=== PATIENT | male | born 1940 | race Caucasian/White ===

== ENCOUNTER → 2017-03-26 | Outpatient (CLI) | payer MEDICARE, OTHER | END | disposition home or self-care (01) | LOC: CFH 08:29 | PROVIDERS: ATTEND Internal Medicine Cardiovascular Disease | DX: I25.5 Ischemic cardiomyopathy (principal) | CPT/HCPCS: 93306 ==

== ENCOUNTER → 2017-12-18 | Outpatient (CLI) | payer MEDICARE, OTHER | END | disposition home or self-care (01) | LOC: CFH 07:05 | PROVIDERS: ATTEND Family Medicine | DX: E04.2 Nontoxic multinodular goiter (principal) | CPT/HCPCS: 76536 ==

== ENCOUNTER → 2018-04-12 | Outpatient (CLI) | payer MEDICARE, OTHER | END | disposition home or self-care (01) | LOC: CFH 07:16 | PROVIDERS: ATTEND Internal Medicine Cardiovascular Disease | DX: I08.0 Rheumatic disorders of both mitral and aortic valves (principal); I25.5 Ischemic cardiomyopathy; I25.2 Old myocardial infarction; I25.10 Atherosclerotic heart disease of native coronary artery without angina pectoris; E11.9 Type 2 diabetes mellitus without complications | CPT/HCPCS: 93306 ==

== ENCOUNTER → 2018-05-24 | Outpatient (CLI) | payer MEDICARE, OTHER ==
[~2018-05-24] MED LIST: GADOBUTROL 10 MMOL/10 ML PFS ONE
== END | disposition home or self-care (01) ==
LOC: CFH 07:17
PROVIDERS: ATTEND Podiatrist
DX: M79.672 Pain in left foot (principal); E11.9 Type 2 diabetes mellitus without complications; I25.10 Atherosclerotic heart disease of native coronary artery without angina pectoris
CPT/HCPCS: 73720; 82565; A9585

== ENCOUNTER → 2018-11-10 | Outpatient (CLI) | payer MEDICARE, OTHER | END | disposition home or self-care (01) | LOC: CVU 08:24 | PROVIDERS: ATTEND Internal Medicine Cardiovascular Disease | DX: I08.0 Rheumatic disorders of both mitral and aortic valves (principal); I27.20 Pulmonary hypertension, unspecified | CPT/HCPCS: 0399T; 93306 ==

== ENCOUNTER 2018-11-17 09:19 | Observation (INO) | payer MEDICARE, OTHER ==
[2018-11-15 09:06] VITALS: BP 110/76
[2018-11-15 09:37] LABS: BASOPHILS % (AUTO) 0 % (0-1); EOSINOPHILS % (AUTO) 1 % (1-7); LYMPHOCYTES # (AUTO) 1.16 x10^3/uL (1-3.4); LYMPHOCYTES % (AUTO) 13 % (22-44); MD NO; MEAN CORPUSCULAR HEMOGLOBIN 25.9 pg (27.5-34.5); MEAN CORPUSCULAR HGB CONC 31.2 g/dL (33.2-36.2); MEAN PLATELET VOLUME 7.2 fL (7.4-10.4); MONOCYTES # (AUTO) 0.59 x10^3/uL (0.2-0.8); MONOCYTES % (AUTO) 7 % (2-9); NEUTROPHILS # (AUTO) 7.32 x10^3/uL (1.8-6.8); NEUTROPHILS % (AUTO) 80 % (42-75); PLATELET COUNT 233 x10^3/uL (130-400); RED BLOOD COUNT 4.93 x10^6/uL (4.38-5.82); RED CELL DISTRIBUTION WIDTH 17.6 % (9.4-14.8)
[2018-11-15 09:46] LABS: ANION GAP 8 mmol/L (5-15); CALCIUM 9.4 mg/dL (8.5-10.1); CHLORIDE 103 mmol/L (98-107)
[~2018-11-17] VITALS: Ht 185.4 cm; Wt 86.9 kg
[~2018-11-17 09:19] MED LIST changes: +ASPI-496 PO; +CARV3.1212 PO; +DAPA1TAB3 PO; +DULA1.5P SC; +FURO20TA3 PO; -GADOBUTROL 10 MMOL/10 ML PFS ONE; +MV-M1TAB16 PO
[2018-11-17] MEDS: SODIUM CHLORIDE 0.9% 1,000 ML IV SCH ×6 (11:00→23:00)
[2018-11-17] MEDS ORDERED: FENTANYL PF 100 MCG/2ML ONE (11:42)
[2018-11-17] MEDS ORDERED: MIDAZOLAM 1 MG/ML, 5ML ONE (11:42)
[2018-11-17] MEDS ORDERED: BIVALIRUDIN 250 MG ONE (11:43)
[2018-11-17] MEDS ORDERED: LIDOCAINE 2%, 20ML ONE (11:43)
[2018-11-17] MEDS ORDERED: HEPARIN 1,000 UNITS/ML, 10ML ONE (11:43)
[2018-11-17] MEDS ORDERED: VERAPAMIL 2.5 MG/ML, 2ML ONE ×2 (11:43→12:53)
[2018-11-17] MEDS ORDERED: NITROGLYCERIN 5 MG/ML, 10ML ONE (12:53)
[2018-11-17] MEDS ORDERED: TICAGRELOR 90 MG TABLET ONE (13:22)
[2018-11-17 13:45] VITALS: BP 99/65
[2018-11-17 19:10] VITALS: BP 94/63
[2018-11-17 20:00] VITALS: BP 93/61
[2018-11-17] MEDS: CARVEDILOL 3.125 MG TABLET PO SCH (20:58)
[2018-11-17] MEDS ORDERED: TICAGRELOR 90 MG TABLET PO SCH ×2 (21:00)
[2018-11-18 02:08] VITALS: BP 100/65
[2018-11-18 04:43] LABS: CHLORIDE 105 mmol/L (98-107)
[2018-11-18 04:48] LABS: CALCIUM 8.5 mg/dL (8.5-10.1); CREATININE 1.64 mg/dL (0.7-1.3)
[2018-11-18 04:50] LABS: ANION GAP 14 mmol/L (5-15)
[2018-11-18] MEDS ORDERED: CLOP75TA PO (07:54)
[2018-11-18 07:58] VITALS: BP 93/61
[2018-11-18] MEDS ORDERED: CLOPIDOGREL 75 MG TABLET ONE (08:36)
[2018-11-18 08:40] VITALS: BP 102/69
[2018-11-18] MEDS: CARVEDILOL 3.125 MG TABLET PO SCH (08:42)
[2018-11-18] MEDS ORDERED: CLOPIDOGREL 75 MG TABLET PO SCH ×2 (09:00)
[2018-11-18] MEDS ORDERED: FUROSEMIDE 20 MG TABLET PO SCH (09:00)
[2018-11-18] MEDS ORDERED: ASPIRIN 81 MG TABLET EC PO SCH (09:00)
[2018-11-18] MEDS ORDERED: TEMPLATE NON-FORMULARY MED. (Aspirin** (Aspir 81**) 81 MG) PO SCH (09:00)
[2018-11-19] MEDS ORDERED: CLOPIDOGREL 75 MG TABLET PO SCH (09:00)
[2018-11-21] MEDS ORDERED: TEMPLATE NON-FORMULARY MED. (Dulaglutide (Trulicity) 0.5 ML) SC SCH (14:00)
== END 2018-11-18 10:50 | disposition home or self-care (01) ==
LOC: CACL 09:19 → 5SO 13:34 → CACL 13:39 → DCLOUNGE 11-18 10:24
PROVIDERS: ADMIT Internal Medicine Cardiovascular Disease; ATTEND Internal Medicine Cardiovascular Disease
DX: I25.10 Atherosclerotic heart disease of native coronary artery without angina pectoris (principal); I11.0 Hypertensive heart disease with heart failure; I50.23 Acute on chronic systolic (congestive) heart failure; I25.2 Old myocardial infarction; E78.2 Mixed hyperlipidemia; E11.9 Type 2 diabetes mellitus without complications; I35.0 Nonrheumatic aortic (valve) stenosis; I25.5 Ischemic cardiomyopathy; E11.65 Type 2 diabetes mellitus with hyperglycemia; N52.9 Male erectile dysfunction, unspecified; I70.213 Atherosclerosis of native arteries of extremities with intermittent claudication, bilateral legs
CPT/HCPCS: 36415; 80048; 85014; 85018; 85025; 93458; 99156; 99157; C1724; C1725; C1769; C1874; C1887; C1894; C9602; G0378; J0583; J1644; J2250; J3010; J3490; Q9967

== ENCOUNTER → 2018-12-02 | Outpatient (CLI) | payer MEDICARE, OTHER ==
[~2018-12-02] MED LIST changes: +CLOP75TA PO; +OMNIPAQUE 350 MG/ML, 150 ML BOTTLE ONE
== END | disposition home or self-care (01) ==
LOC: CVU 11:41
PROVIDERS: ATTEND Internal Medicine Cardiovascular Disease
DX: I50.9 Heart failure, unspecified (principal); J90 Pleural effusion, not elsewhere classified; J81.1 Chronic pulmonary edema; J98.11 Atelectasis; I70.0 Atherosclerosis of aorta; I35.0 Nonrheumatic aortic (valve) stenosis; K42.9 Umbilical hernia without obstruction or gangrene; E11.9 Type 2 diabetes mellitus without complications; I65.23 Occlusion and stenosis of bilateral carotid arteries; Z87.891 Personal history of nicotine dependence
CPT/HCPCS: 71275; 74174; 93880; 94010; 94726; 94729; Q9967

== ENCOUNTER → 2018-12-20 | Outpatient (CLI) | payer MEDICARE, OTHER ==
[~2018-12-20] MED LIST changes: -OMNIPAQUE 350 MG/ML, 150 ML BOTTLE ONE
== END | disposition home or self-care (01) ==
LOC: CFH 07:59
PROVIDERS: ATTEND Internal Medicine
DX: K46.9 Unspecified abdominal hernia without obstruction or gangrene (principal); J90 Pleural effusion, not elsewhere classified; M79.81 Nontraumatic hematoma of soft tissue
CPT/HCPCS: 74176

== ENCOUNTER 2018-12-21 15:26 | Inpatient (IN) | payer MEDICARE, OTHER ==
[~2018-12-21] VITALS: Ht 185.4 cm; Wt 88.6 kg
[2018-12-21] MEDS ORDERED: SODIUM CHLORIDE FLUSH 10ML SYR IVF ONE (16:00)
[2018-12-21 16:18] LABS: BASOPHILS # (AUTO) 0.06 x10^3/uL (0-0.1); BASOPHILS % (AUTO) 1 % (0-1); EOSINOPHILS # (AUTO) 0.03 x10^3/uL (0-0.4); EOSINOPHILS % (AUTO) 0 % (1-7); LYMPHOCYTES # (AUTO) 0.69 x10^3/uL (1-3.4); LYMPHOCYTES % (AUTO) 6 % (22-44); MD NO; MEAN CORPUSCULAR HEMOGLOBIN 25.1 pg (27.5-34.5); MEAN CORPUSCULAR HGB CONC 31.9 g/dL (33.2-36.2); MEAN CORPUSCULAR VOLUME 78.5 fL (81-97); MEAN PLATELET VOLUME 7.8 fL (7.4-10.4); MONOCYTES % (AUTO) 6 % (2-9); NEUTROPHILS # (AUTO) 11.05 x10^3/uL (1.8-6.8); NEUTROPHILS % (AUTO) 88 % (42-75); PLATELET COUNT 250 x10^3/uL (130-400)
[2018-12-21 16:28] LABS: INTERNATIONAL NORMALIZED RATIO 1.26 (0.93-1.1); PROTHROMBIN TIME 13.1 Seconds (9.6-11.5)
[2018-12-21 16:30] LABS: ALANINE AMINOTRANSFERASE 68 U/L (12-78); ALBUMIN 3.3 g/dL (3.4-5.0); ANION GAP 12 mmol/L (5-15); CALCIUM 8.5 mg/dL (8.5-10.1); CHLORIDE 98 mmol/L (98-107); CREATININE 1.83 mg/dL (0.7-1.3)
[2018-12-21 16:35] LABS: ALKALINE PHOSPHATASE 177 U/L (45-117); BILIRUBIN,TOTAL 1.9 mg/dL (0.2-1.0); CREATINE KINASE, TOTAL 178 U/L (39-308); TOTAL PROTEIN 6.5 g/dL (6.4-8.2)
[2018-12-21 16:39] LABS: TROPONIN I 0.359 ng/mL (0.000-0.045)
[2018-12-21] MEDS ORDERED: FUROSEMIDE 40 MG/4 ML IV ONE (17:00)
[2018-12-21] MEDS ORDERED: FUROSEMIDE 40 MG/4 ML ONE (17:55)
--- NOTE | 2018-12-21 18:09 | NUR ---
PT MED WITH RONNYIX NOTED. CALL LIGHT W/I REACH, COMMODE AT BEDSIDE. PT VERBALIZES UNDERSTANDING TO CALL FOR RN IF HE NEEDS TO USE THE COMMODE.
--- NOTE | 2018-12-21 18:36 | NUR ---
PT OOB TO COMMODE, VOIDED W/O DIFFICULTY AND RTD TO BED. MONITORS IN PLACE, CALL LIGHT W/I REACH
[2018-12-21 18:55] LABS: MICROSCOPIC AUTO
[2018-12-21 18:59] LABS: CULTURE INDICATED? YES
--- NOTE | 2018-12-21 19:07 | NUR ---
BEDSIDE REPORT FROM RONALD VAZQUEZ. THIS RN TO ASSUME CARE OF PT. LIGHTS TURNED DOWN AND GIVEN WARM BLANKET FOR COMFORT. NO OTHER IMMEDIATE NEEDS. CALL LIGHT WITHIN REACH.
--- NOTE | 2018-12-21 19:18 | NUR ---
[facility] RPT TO TAYLOR VELAZQUEZ
[2018-12-21] MEDS ORDERED: ACETAMINOPHEN 325 MG TABLET PO PRN (20:00)
[2018-12-21] MEDS ORDERED: DOCUSATE 100 MG CAPSULE PO PRN (20:00)
[2018-12-21 21:00] VITALS: BP 92/62
[2018-12-21] MEDS: ATORVASTATIN 40 MG TABLET PO SCH (22:18)
[2018-12-21] MEDS: HEPARIN 5,000 UNITS/ML, 1ML SQ SCH (22:18)
[2018-12-21] MEDS: SODIUM CHLORIDE FLUSH 10ML SYR IVF SCH (22:41)
[2018-12-21] MEDS: INSULIN LISPRO 100 UNITS/ML, PEN SQ-INSULIN SCH (22:42)
[2018-12-21] MEDS ORDERED: DEXTROSE 4 GM TAB.CHEW PO PRN (23:00)
[2018-12-21] MEDS ORDERED: GLUCAGON 1 MG IM PRN (23:00)
[2018-12-21] MEDS ORDERED: DEXTROSE 50%, 50ML SYRINGE IVPush PRN (23:00)
[2018-12-21 23:49] LABS: TROPONIN I 0.336 ng/mL (0.000-0.045)
[2018-12-22] VITALS (9 sets, daily range): BP systolic 84–102; BP diastolic 47–66
[2018-12-22 04:30] LABS: BASOPHILS # (AUTO) 0.05 x10^3/uL (0-0.1); BASOPHILS % (AUTO) 1 % (0-1); EOSINOPHILS # (AUTO) 0.23 x10^3/uL (0-0.4); EOSINOPHILS % (AUTO) 2 % (1-7); LYMPHOCYTES # (AUTO) 1.17 x10^3/uL (1-3.4); LYMPHOCYTES % (AUTO) 12 % (22-44); MD NO; MEAN CORPUSCULAR HEMOGLOBIN 25.2 pg (27.5-34.5); MEAN CORPUSCULAR HGB CONC 32.2 g/dL (33.2-36.2); MEAN CORPUSCULAR VOLUME 78.3 fL (81-97); MEAN PLATELET VOLUME 7.4 fL (7.4-10.4); MONOCYTES # (AUTO) 0.81 x10^3/uL (0.2-0.8); MONOCYTES % (AUTO) 9 % (2-9); NEUTROPHILS # (AUTO) 7.25 x10^3/uL (1.8-6.8); NEUTROPHILS % (AUTO) 76 % (42-75); PLATELET COUNT 194 x10^3/uL (130-400); RED BLOOD COUNT 4.33 x10^6/uL (4.38-5.82); RED CELL DISTRIBUTION WIDTH 19.7 % (9.4-14.8)
[2018-12-22 04:41] LABS: ANION GAP 8 mmol/L (5-15); CALCIUM 8.3 mg/dL (8.5-10.1); CHLORIDE 101 mmol/L (98-107); CREATININE 1.46 mg/dL (0.7-1.3)
[2018-12-22 04:45] LABS: TROPONIN I 0.409 ng/mL (0.000-0.045)
[2018-12-22] MEDS: HEPARIN 5,000 UNITS/ML, 1ML SQ SCH ×3 (06:01→21:46)
[2018-12-22] MEDS: ASPIRIN 81 MG TABLET EC PO SCH (06:01)
[2018-12-22] MEDS: INSULIN LISPRO 100 UNITS/ML, PEN SQ-INSULIN SCH ×4 (07:00→20:27)
[2018-12-22] MEDS ORDERED: FUROSEMIDE 40 MG/4 ML IV SCH (07:30)
[2018-12-22] MEDS: SODIUM CHLORIDE FLUSH 10ML SYR IVF SCH ×2 (08:13→20:21)
[2018-12-22] MEDS: CLOPIDOGREL 75 MG TABLET PO SCH (08:15)
[2018-12-22] MEDS ORDERED: TEMPLATE NON-FORMULARY MED. (Aspirin** (Aspir 81**) 81 MG) PO SCH (09:00)
[2018-12-22] MEDS ORDERED: CARVEDILOL 3.125 MG TABLET PO SCH (09:00)
[2018-12-22] MEDS ORDERED: ISOSORBIDE DINITRATE 10 MG TABLET PO SCH (09:00)
[2018-12-22] MEDS ORDERED: TEMPLATE NON-FORMULARY MED. (Clopidogrel Bisulfate** (Clopidogrel**) 75 MG) PO SCH (09:00)
[2018-12-22] MEDS: FUROSEMIDE 20 MG TABLET PO SCH (09:00)
[2018-12-22] MEDS ORDERED: ACETAMINOPHEN 325 MG TABLET PO PRN (09:00)
[2018-12-22] MEDS ORDERED: POTASSIUM CHLORIDE 20 MEQ TAB.ER.PRT PO ONE (09:00)
[2018-12-22] MEDS: CARVEDILOL 3.125 MG TABLET PO SCH ×2 (10:38→21:40)
[2018-12-22 11:55] LABS: TROPONIN I 0.443 ng/mL (0.000-0.045)
[2018-12-22] MEDS: ISOSORBIDE DINITRATE 10 MG TABLET PO SCH ×2 (15:36→20:22)
[2018-12-22] MEDS: ATORVASTATIN 40 MG TABLET PO SCH (20:22)
[2018-12-23 01:35] VITALS: BP 97/55
[2018-12-23 05:07] LABS: ANION GAP 7 mmol/L (5-15); CALCIUM 8.2 mg/dL (8.5-10.1); CHLORIDE 104 mmol/L (98-107); HEMOGLOBIN A1C 9.8 % (4.2-6.3)
[2018-12-23 05:10] LABS: BASOPHILS # (AUTO) 0.02 x10^3/uL (0-0.1); BASOPHILS % (AUTO) 0 % (0-1); EOSINOPHILS # (AUTO) 0.13 x10^3/uL (0-0.4); EOSINOPHILS % (AUTO) 2 % (1-7); LYMPHOCYTES # (AUTO) 1.04 x10^3/uL (1-3.4); LYMPHOCYTES % (AUTO) 14 % (22-44); MD NO; MEAN CORPUSCULAR HEMOGLOBIN 24.6 pg (27.5-34.5); MEAN CORPUSCULAR HGB CONC 31.3 g/dL (33.2-36.2); MEAN CORPUSCULAR VOLUME 78.4 fL (81-97); MEAN PLATELET VOLUME 7.5 fL (7.4-10.4); MONOCYTES # (AUTO) 0.53 x10^3/uL (0.2-0.8); MONOCYTES % (AUTO) 7 % (2-9); NEUTROPHILS % (AUTO) 77 % (42-75); PLATELET COUNT 171 x10^3/uL (130-400); RED BLOOD COUNT 4.25 x10^6/uL (4.38-5.82); RED CELL DISTRIBUTION WIDTH 19.5 % (9.4-14.8)
[2018-12-23 05:13] LABS: CREATININE 1.49 mg/dL (0.7-1.3)
[2018-12-23 05:35] VITALS: BP 75/35
[2018-12-23] MEDS: CARVEDILOL 3.125 MG TABLET PO SCH ×2 (05:36→17:56)
[2018-12-23] MEDS: HEPARIN 5,000 UNITS/ML, 1ML SQ SCH ×3 (05:37→20:45)
[2018-12-23] MEDS: ASPIRIN 81 MG TABLET EC PO SCH (05:37)
[2018-12-23 08:40] VITALS: BP 100/56
[2018-12-23] MEDS: FUROSEMIDE 20 MG TABLET PO SCH (09:02)
[2018-12-23] MEDS: ISOSORBIDE DINITRATE 10 MG TABLET PO SCH (09:02)
[2018-12-23] MEDS: CLOPIDOGREL 75 MG TABLET PO SCH (09:03)
[2018-12-23] MEDS: INSULIN LISPRO 100 UNITS/ML, PEN SQ-INSULIN SCH ×4 (09:04→21:02)
[2018-12-23 09:05] VITALS: BP 87/49
[2018-12-23] MEDS: SODIUM CHLORIDE FLUSH 10ML SYR IVF SCH ×2 (09:08→20:45)
[2018-12-23 13:48] VITALS: BP 116/68
[2018-12-23 19:06] VITALS: BP 90/56
[2018-12-23] MEDS: ATORVASTATIN 40 MG TABLET PO SCH (20:45)
[2018-12-24 01:06] VITALS: BP 95/60
[2018-12-24 06:35] VITALS: BP 93/61
[2018-12-24] MEDS: HEPARIN 5,000 UNITS/ML, 1ML SQ SCH ×3 (06:36→20:04)
[2018-12-24] MEDS: ASPIRIN 81 MG TABLET EC PO SCH (06:36)
[2018-12-24 07:00] VITALS: BP 96/60
[2018-12-24] MEDS: CARVEDILOL 3.125 MG TABLET PO SCH (08:25)
[2018-12-24] MEDS: INSULIN LISPRO 100 UNITS/ML, PEN SQ-INSULIN SCH ×4 (08:25→20:15)
[2018-12-24] MEDS: SODIUM CHLORIDE FLUSH 10ML SYR IVF SCH ×2 (08:25→20:03)
[2018-12-24] MEDS: FUROSEMIDE 20 MG TABLET PO SCH (08:25)
[2018-12-24] MEDS: CLOPIDOGREL 75 MG TABLET PO SCH (08:25)
[2018-12-24 13:40] VITALS: BP 91/64
[2018-12-24] MEDS: CARVEDILOL 6.25 MG TABLET PO SCH (20:04)
[2018-12-24] MEDS: ATORVASTATIN 40 MG TABLET PO SCH (20:04)
[2018-12-24 20:34] VITALS: BP 104/62
[2018-12-24] MEDS ORDERED: INSULIN GLARGINE 100 UNITS/ML, PEN SQ-INSULIN SCH (21:00)
[2018-12-25 01:25] VITALS: BP 108/57
[2018-12-25 05:23] LABS: ANION GAP 8 mmol/L (5-15); CALCIUM 8.2 mg/dL (8.5-10.1); CHLORIDE 104 mmol/L (98-107)
[2018-12-25] MEDS: ASPIRIN 81 MG TABLET EC PO SCH (06:56)
[2018-12-25] MEDS: HEPARIN 5,000 UNITS/ML, 1ML SQ SCH ×3 (06:56→21:32)
[2018-12-25] MEDS: CARVEDILOL 6.25 MG TABLET PO SCH (06:56)
[2018-12-25] MEDS: INSULIN LISPRO 100 UNITS/ML, PEN SQ-INSULIN SCH ×4 (07:00→21:41)
[2018-12-25 08:20] VITALS: BP 84/56
[2018-12-25] MEDS: FUROSEMIDE 20 MG TABLET PO SCH (08:52)
[2018-12-25] MEDS: CLOPIDOGREL 75 MG TABLET PO SCH (08:52)
[2018-12-25] MEDS: SODIUM CHLORIDE FLUSH 10ML SYR IVF SCH ×2 (08:52→21:33)
[2018-12-25 13:30] VITALS: BP 98/58
[2018-12-25] MEDS: CARVEDILOL 3.125 MG TABLET PO SCH (17:51)
[2018-12-25 20:35] VITALS: BP 92/54
[2018-12-25] MEDS ORDERED: INSULIN GLARGINE 100 UNITS/ML, PEN SQ-INSULIN SCH (21:00)
[2018-12-25] MEDS: ATORVASTATIN 40 MG TABLET PO SCH (21:32)
[2018-12-26 05:00] VITALS: BP 96/53
[2018-12-26] MEDS: CARVEDILOL 3.125 MG TABLET PO SCH ×2 (05:24→18:00)
[2018-12-26] MEDS: ASPIRIN 81 MG TABLET EC PO SCH (05:24)
[2018-12-26] MEDS: INSULIN LISPRO 100 UNITS/ML, PEN SQ-INSULIN SCH ×5 (07:00→21:45)
[2018-12-26 07:04] VITALS: BP 87/52
[2018-12-26] MEDS: CLOPIDOGREL 75 MG TABLET PO SCH (08:08)
[2018-12-26] MEDS: HEPARIN 5,000 UNITS/ML, 1ML SQ SCH ×3 (08:08→21:46)
[2018-12-26] MEDS: SODIUM CHLORIDE FLUSH 10ML SYR IVF SCH ×2 (08:09→21:44)
[2018-12-26 14:27] VITALS: BP 90/58
[2018-12-26 14:38] VITALS: BP 98/60
[2018-12-26] MEDS: FUROSEMIDE 20 MG TABLET PO SCH (14:45)
[2018-12-26] MEDS: INSULIN GLARGINE 100 UNITS/ML, PEN SQ-INSULIN SCH ×2 (17:30→21:46)
[2018-12-26 18:35] VITALS: BP_SYST 81; BP_SYST 87; BP_DIAS 58
[2018-12-26 20:33] VITALS: BP 100/65
[2018-12-26] MEDS: ATORVASTATIN 40 MG TABLET PO SCH (21:44)
[2018-12-27 02:28] VITALS: BP 90/59
[2018-12-27] MEDS: ASPIRIN 81 MG TABLET EC PO SCH (05:32)
[2018-12-27] MEDS: CARVEDILOL 3.125 MG TABLET PO SCH ×2 (05:32→18:46)
[2018-12-27] MEDS: HEPARIN 5,000 UNITS/ML, 1ML SQ SCH ×3 (05:32→20:44)
[2018-12-27 05:36] VITALS: BP 94/60
[2018-12-27 05:59] LABS: CHLORIDE 104 mmol/L (98-107)
[2018-12-27 06:04] LABS: ANION GAP 8 mmol/L (5-15); CALCIUM 8.3 mg/dL (8.5-10.1); CREATININE 1.27 mg/dL (0.7-1.3)
[2018-12-27] MEDS: INSULIN LISPRO 100 UNITS/ML, PEN SQ-INSULIN SCH ×4 (07:00→20:59)
[2018-12-27 07:12] VITALS: BP 89/56
[2018-12-27] MEDS ORDERED: POTASSIUM PHOSPHATE 44 MEQ in SODIUM CHLORIDE 0.9% 500 ML IV ONE (10:00)
[2018-12-27] MEDS: CLOPIDOGREL 75 MG TABLET PO SCH (10:11)
[2018-12-27] MEDS: FUROSEMIDE 20 MG TABLET PO SCH (10:11)
[2018-12-27] MEDS: SODIUM CHLORIDE FLUSH 10ML SYR IVF SCH ×2 (10:11→20:59)
[2018-12-27] MEDS: INSULIN GLARGINE 100 UNITS/ML, PEN SQ-INSULIN SCH ×2 (11:47→20:59)
[2018-12-27 13:36] VITALS: BP 87/57
[2018-12-27] MEDS: POTASSIUM CHLORIDE 20 MEQ TAB.ER.PRT PO SCH (16:29)
[2018-12-27 19:39] VITALS: BP 95/63
[2018-12-27] MEDS: ATORVASTATIN 40 MG TABLET PO SCH (20:58)
[2018-12-28] MEDS ORDERED: ONDANSETRON 2MG/ML, 2ML IVPush PRN ×3 (01:00→20:30)
[2018-12-28] MEDS ORDERED: SODIUM CHLORIDE 0.9% 1,000 ML IV ONE (01:00)
[2018-12-28] MEDS ORDERED: CHLORHEXIDINE 15 ML UDC MM PRN (01:00)
[2018-12-28 01:32] VITALS: BP 92/60
[2018-12-28 01:45] LABS: BASOPHILS # (AUTO) 0.03 x10^3/uL (0-0.1); BASOPHILS % (AUTO) 0 % (0-1); EOSINOPHILS # (AUTO) 0.17 x10^3/uL (0-0.4); EOSINOPHILS % (AUTO) 2 % (1-7); LYMPHOCYTES # (AUTO) 1.47 x10^3/uL (1-3.4); LYMPHOCYTES % (AUTO) 19 % (22-44); MD NO; MEAN CORPUSCULAR HEMOGLOBIN 24.8 pg (27.5-34.5); MEAN CORPUSCULAR HGB CONC 31.6 g/dL (33.2-36.2); MEAN CORPUSCULAR VOLUME 78.4 fL (81-97); MEAN PLATELET VOLUME 7.5 fL (7.4-10.4); MONOCYTES # (AUTO) 0.85 x10^3/uL (0.2-0.8); MONOCYTES % (AUTO) 11 % (2-9); NEUTROPHILS # (AUTO) 5.17 x10^3/uL (1.8-6.8); NEUTROPHILS % (AUTO) 67 % (42-75); PLATELET COUNT 188 x10^3/uL (130-400); RED BLOOD COUNT 4.37 x10^6/uL (4.38-5.82); RED CELL DISTRIBUTION WIDTH 20.1 % (9.4-14.8)
[2018-12-28 01:55] LABS: INTERNATIONAL NORMALIZED RATIO 1.24 (0.93-1.1); PROTHROMBIN TIME 12.9 Seconds (9.6-11.5)
[2018-12-28 01:57] LABS: ALANINE AMINOTRANSFERASE 35 U/L (12-78); ALBUMIN 2.6 g/dL (3.4-5.0); ANION GAP 5 mmol/L (5-15); CALCIUM 8.3 mg/dL (8.5-10.1); CHLORIDE 106 mmol/L (98-107); CREATININE 1.42 mg/dL (0.7-1.3)
[2018-12-28 01:59] LABS: ALKALINE PHOSPHATASE 154 U/L (45-117); BILIRUBIN,TOTAL 1.2 mg/dL (0.2-1.0); TOTAL PROTEIN 5.8 g/dL (6.4-8.2)
[2018-12-28] MEDS: HEPARIN 5,000 UNITS/ML, 1ML SQ SCH ×3 (05:43→23:13)
[2018-12-28 06:14] VITALS: BP 96/63
[2018-12-28] MEDS: CARVEDILOL 3.125 MG TABLET PO SCH ×2 (06:14→17:36)
[2018-12-28] MEDS: INSULIN LISPRO 100 UNITS/ML, PEN SQ-INSULIN SCH ×5 (07:00→23:00)
[2018-12-28 07:43] VITALS: BP 97/62
[2018-12-28] MEDS: POTASSIUM CHLORIDE 20 MEQ TAB.ER.PRT PO SCH (08:42)
[2018-12-28] MEDS: FUROSEMIDE 20 MG TABLET PO SCH (08:43)
[2018-12-28] MEDS: CLOPIDOGREL 75 MG TABLET PO SCH (08:43)
[2018-12-28] MEDS: ASPIRIN 81 MG TABLET EC PO SCH (08:43)
[2018-12-28] MEDS: INSULIN GLARGINE 100 UNITS/ML, PEN SQ-INSULIN SCH (08:47)
[2018-12-28] MEDS: SODIUM CHLORIDE FLUSH 10ML SYR IVF SCH ×2 (08:47→20:04)
[2018-12-28] MEDS ORDERED: FENTANYL PF 250 MCG/5ML ONE ×2 (10:50→12:58)
[2018-12-28] MEDS ORDERED: SUCCINYLCHOLINE 20 MG/ML, 10ML ONE (11:29)
[2018-12-28] MEDS ORDERED: CEFAZOLIN 1,000 MG ONE (11:29)
[2018-12-28] MEDS ORDERED: PROPOFOL 10 MG/ML, 20ML ONE (11:29)
[2018-12-28] MEDS ORDERED: ROCURONIUM 10 MG/ML,10ML ONE (11:29)
[2018-12-28] MEDS ORDERED: DEXMEDETOMIDINE 1,000 MCG in SODIUM CHLORIDE 0.9% 240 ML IV PRN (13:30)
[2018-12-28] MEDS ORDERED: VASOPRESSIN 100 UNIT in SODIUM CHLORIDE 0.9% 495 ML IV PRN (13:39)
[2018-12-28] MEDS ORDERED: EPINEPHRINE 1 MG in SODIUM CHLORIDE 0.9% 249 ML IV PRN (13:39)
[2018-12-28] MEDS ORDERED: MIDAZOLAM 1 MG/ML, 2ML ONE (13:44)
[2018-12-28] MEDS: FENTANYL PF 100 MCG/2ML IVPush PRN ×3 (13:58→20:04)
[2018-12-28] MEDS ORDERED: MIDAZOLAM 1 MG/ML, 2ML IVPush PRN (14:00)
[2018-12-28] MEDS ORDERED: LIDOCAINE-MPF 1%, 2ML ENDO PRN (14:00)
[2018-12-28] MEDS ORDERED: ALBUTEROL/IPRATROPIUM 2.5MG/0.5MG, 3 ML INLINE SCH (14:00)
[2018-12-28] MEDS ORDERED: PHARMACY MAY ADJ FOR RENAL FX MC SCH (14:00)
[2018-12-28] MEDS: FAMOTIDINE 20 MG/2 ML IV SCH (15:38)
[2018-12-28] MEDS ORDERED: FUROSEMIDE 40 MG/4 ML IV SCH ×2 (17:00)
[2018-12-28] MEDS ORDERED: DOBUTAMINE/D5W PMX 250 ML ONE (17:26)
[2018-12-28] MEDS ORDERED: NOREPINEPHRINE 1 MG/ML, 4ML ONE (18:13)
[2018-12-28] MEDS ORDERED: hydrALAzine 20 MG/ML, 1ML IVPush PRN (20:30)
[2018-12-28] MEDS ORDERED: LABETALOL 5 MG/ML SYRINGE IVPush PRN (20:30)
[2018-12-28] MEDS: ATORVASTATIN 40 MG TABLET PO SCH (21:00)
[2018-12-28] MEDS: DOBUTAMINE 250 MG in SODIUM CHLORIDE 0.9% 230 ML IV PRN (21:19)
[2018-12-28] MEDS ORDERED: SODIUM BICARBONATE 1 MEQ/ML, 50ML VIAL ONE (22:11)
[2018-12-28] MEDS ORDERED: SODIUM BICARBONATE 1 MEQ/ML, 50ML VIAL IVPush ONE (22:30)
[2018-12-28 22:37] LABS: ALANINE AMINOTRANSFERASE 37 U/L (12-78); ANION GAP 8 mmol/L (5-15); CALCIUM 7.3 mg/dL (8.5-10.1); CHLORIDE 111 mmol/L (98-107)
[2018-12-28 22:40] LABS: ALKALINE PHOSPHATASE 139 U/L (45-117); BILIRUBIN,TOTAL 1.6 mg/dL (0.2-1.0); CREATININE 1.17 mg/dL (0.7-1.3); TOTAL PROTEIN 4.5 g/dL (6.4-8.2)
[2018-12-28 22:44] LABS: BASOPHILS % (AUTO) 0 % (0-1); EOSINOPHILS # (AUTO) 0.01 x10^3/uL (0-0.4); EOSINOPHILS % (AUTO) 0 % (1-7); LYMPHOCYTES # (AUTO) 0.21 x10^3/uL (1-3.4); LYMPHOCYTES % (AUTO) 2 % (22-44); MD NO; MEAN CORPUSCULAR HEMOGLOBIN 24.7 pg (27.5-34.5); MEAN CORPUSCULAR VOLUME 77.4 fL (81-97); MEAN PLATELET VOLUME 7.4 fL (7.4-10.4); MONOCYTES # (AUTO) 0.67 x10^3/uL (0.2-0.8); MONOCYTES % (AUTO) 5 % (2-9); NEUTROPHILS # (AUTO) 12.05 x10^3/uL (1.8-6.8); NEUTROPHILS % (AUTO) 93 % (42-75); PLATELET COUNT 163 x10^3/uL (130-400); RED BLOOD COUNT 3.38 x10^6/uL (4.38-5.82); RED CELL DISTRIBUTION WIDTH 19.8 % (9.4-14.8)
[2018-12-28] MEDS ORDERED: EPINEPHRINE 4 MG in SODIUM CHLORIDE 0.9% 249 ML IV PRN (23:00)
[2018-12-28] MEDS: EPINEPHRINE 4 MG in SODIUM CHLORIDE 0.9% 246 ML IV PRN (23:09)
[2018-12-29] MEDS: NOREPINEPHRINE 4 MG in SODIUM CHLORIDE 0.9% 246 ML IV PRN ×6 (00:23→18:06)
[2018-12-29] MEDS: FENTANYL PF 100 MCG/2ML IVPush PRN ×4 (00:23→20:50)
[2018-12-29] MEDS: FAMOTIDINE 20 MG/2 ML IV SCH ×2 (02:10→14:49)
[2018-12-29] MEDS: CARVEDILOL 3.125 MG TABLET PO SCH ×2 (05:32→17:41)
[2018-12-29] MEDS: ASPIRIN 81 MG TABLET EC PO SCH (05:32)
[2018-12-29] MEDS: HEPARIN 5,000 UNITS/ML, 1ML SQ SCH ×3 (05:32→21:45)
[2018-12-29 05:51] LABS: CALCIUM 7.1 mg/dL (8.5-10.1); CHLORIDE 110 mmol/L (98-107)
[2018-12-29 05:54] LABS: MEAN CORPUSCULAR HEMOGLOBIN 24.5 pg (27.5-34.5); MEAN CORPUSCULAR HGB CONC 31.3 g/dL (33.2-36.2); MEAN PLATELET VOLUME 7.8 fL (7.4-10.4); PLATELET COUNT 163 x10^3/uL (130-400); RED BLOOD COUNT 3.25 x10^6/uL (4.38-5.82); RED CELL DISTRIBUTION WIDTH 19.8 % (9.4-14.8)
[2018-12-29 05:57] LABS: ALANINE AMINOTRANSFERASE 35 U/L (12-78); ALBUMIN 1.9 g/dL (3.4-5.0); ALKALINE PHOSPHATASE 131 U/L (45-117); ANION GAP 11 mmol/L (5-15); BILIRUBIN,TOTAL 1.6 mg/dL (0.2-1.0); CREATININE 1.41 mg/dL (0.7-1.3); TOTAL PROTEIN 4.6 g/dL (6.4-8.2)
[2018-12-29] MEDS: INSULIN LISPRO 100 UNITS/ML, PEN SQ-INSULIN SCH ×4 (06:13→22:57)
[2018-12-29 06:20] LABS: MD YES
[2018-12-29 06:23] LABS: BAND#(MANUAL) 2.88 x10^3/uL; BANDS%(MANUAL) 28 % (0-7); BASOS% (MANUAL) 1 % (0-1); EOS% (MANUAL) 1 % (1-7); LYMPHS% (MANUAL) 1 % (22-44); MONOS#(MANUAL) 0.72 x10^3/uL (0.3-2.7); MONOS% (MANUAL) 7 % (2-9); SEG#(MANUAL) 6.39 x10^3/uL (1.8-6.8); SEGS% (MANUAL) 62 % (42-75)
[2018-12-29 06:24] LABS: <PLATELET ESTIMATE> ADEQUATE; <PLT MORPHOLOGY> NORMAL PLT MORPH; ANISOCYTOSIS 1+; HYPOCHROMIA 1+; MICROCYTOSIS 1+; POLYCHROMASIA 1+
[2018-12-29] MEDS: EPINEPHRINE 4 MG in SODIUM CHLORIDE 0.9% 246 ML IV PRN ×3 (06:50→21:29)
[2018-12-29] MEDS: FUROSEMIDE 40 MG/4 ML IV SCH ×2 (07:30→17:00)
[2018-12-29] MEDS: DOBUTAMINE 250 MG in SODIUM CHLORIDE 0.9% 230 ML IV PRN ×5 (07:41→23:55)
[2018-12-29] MEDS: CLOPIDOGREL 75 MG TABLET PO SCH (09:56)
[2018-12-29] MEDS: SODIUM CHLORIDE FLUSH 10ML SYR IVF SCH ×2 (09:57→20:30)
[2018-12-29] MEDS ORDERED: PHENYLEPHRINE 10 MG in SODIUM CHLORIDE 0.9% 249 ML IV PRN (17:30)
[2018-12-29] MEDS: ATORVASTATIN 40 MG TABLET PO SCH (20:26)
[2018-12-29] MEDS ORDERED: NOREPINEPHRINE 8 MG in SODIUM CHLORIDE 0.9% 242 ML IV PRN (21:30)
[2018-12-29] MEDS ORDERED: FUROSEMIDE 20 MG/2 ML ONE (22:40)
[2018-12-29] MEDS ORDERED: PHENYLEPHRINE 20 MG in SODIUM CHLORIDE 0.9% 248 ML IV PRN (22:48)
[2018-12-29] MEDS ORDERED: FUROSEMIDE 20 MG/2 ML IV ONE (23:00)
[2018-12-30] MEDS ORDERED: DEXMEDETOMIDINE 200 MCG in SODIUM CHLORIDE 0.9% 48 ML IV PRN
[2018-12-30] MEDS ORDERED: LIDOCAINE-MPF 1%, 2ML ENDO PRN (01:00)
[2018-12-30] MEDS ORDERED: DEXTROSE 4 GM TAB.CHEW PO PRN (01:00)
[2018-12-30] MEDS ORDERED: PHARMACY MAY ADJ FOR RENAL FX MC SCH (01:00)
[2018-12-30] MEDS ORDERED: DEXTROSE 50%, 50ML SYRINGE IVPush PRN (01:00)
[2018-12-30] MEDS ORDERED: SENNOSIDES 8.8 MG/5 ML ORAL SOL NG PRN (01:00)
[2018-12-30] MEDS ORDERED: BISACODYL 10 MG SUPP PR PRN (01:00)
[2018-12-30] MEDS ORDERED: GLUCAGON 1 MG IM PRN (01:00)
[2018-12-30] MEDS ORDERED: FENTANYL PF 100 MCG/2ML IVPush PRN (01:00)
[2018-12-30] MEDS: ALBUTEROL/IPRATROPIUM 2.5MG/0.5MG, 3 ML INLINE SCH ×6 (01:04→23:08)
[2018-12-30 01:32] LABS: BASOPHILS # (AUTO) 0.03 x10^3/uL (0-0.1); BASOPHILS % (AUTO) 0 % (0-1); EOSINOPHILS % (AUTO) 0 % (1-7); LYMPHOCYTES % (AUTO) 5 % (22-44); MD NO; MEAN CORPUSCULAR HGB CONC 32.2 g/dL (33.2-36.2); MEAN CORPUSCULAR VOLUME 77.6 fL (81-97); MEAN PLATELET VOLUME 8.1 fL (7.4-10.4); MONOCYTES # (AUTO) 0.57 x10^3/uL (0.2-0.8); MONOCYTES % (AUTO) 6 % (2-9); NEUTROPHILS # (AUTO) 8.19 x10^3/uL (1.8-6.8); NEUTROPHILS % (AUTO) 88 % (42-75); PLATELET COUNT 164 x10^3/uL (130-400); RED BLOOD COUNT 3.06 x10^6/uL (4.38-5.82); RED CELL DISTRIBUTION WIDTH 20.5 % (9.4-14.8)
[2018-12-30 01:40] LABS: INTERNATIONAL NORMALIZED RATIO 1.77 (0.93-1.1); PROTHROMBIN TIME 18.2 Seconds (9.6-11.5)
[2018-12-30 01:41] LABS: ANION GAP 12 mmol/L (5-15); CALCIUM 7.4 mg/dL (8.5-10.1); CHLORIDE 112 mmol/L (98-107); CREATININE 1.83 mg/dL (0.7-1.3); TRIGLYCERIDES 72 mg/dL (50-200)
[2018-12-30] MEDS ORDERED: PHENYLEPHRINE 40 MG in SODIUM CHLORIDE 0.9% 246 ML IV PRN ×2 (01:56→08:29)
[2018-12-30 02:01] LABS: PH, VENOUS 7.326 pH (7.320-7.420)
[2018-12-30] MEDS: FAMOTIDINE 20 MG/2 ML IV SCH ×2 (02:02→13:50)
[2018-12-30] MEDS: NOREPINEPHRINE 16 MG in SODIUM CHLORIDE 0.9% 234 ML IV PRN ×2 (02:38→10:09)
[2018-12-30] MEDS: EPINEPHRINE 4 MG in SODIUM CHLORIDE 0.9% 246 ML IV PRN ×3 (04:46→18:23)
[2018-12-30 05:41] LABS: MEAN CORPUSCULAR HEMOGLOBIN 24.2 pg (27.5-34.5); MEAN CORPUSCULAR HGB CONC 31.5 g/dL (33.2-36.2); MEAN CORPUSCULAR VOLUME 76.8 fL (81-97); PLATELET COUNT 142 x10^3/uL (130-400); RED BLOOD COUNT 2.91 x10^6/uL (4.38-5.82); RED CELL DISTRIBUTION WIDTH 19.9 % (9.4-14.8)
[2018-12-30 05:45] LABS: ALBUMIN 1.9 g/dL (3.4-5.0); ANION GAP 10 mmol/L (5-15); CALCIUM 7.4 mg/dL (8.5-10.1); CHLORIDE 111 mmol/L (98-107)
[2018-12-30 05:50] LABS: ALANINE AMINOTRANSFERASE 40 U/L (12-78); ALKALINE PHOSPHATASE 129 U/L (45-117); CREATININE 1.62 mg/dL (0.7-1.3)
[2018-12-30 05:55] LABS: MD YES
[2018-12-30 05:56] LABS: BAND#(MANUAL) 0.75 x10^3/uL; BANDS%(MANUAL) 9 % (0-7); LYMPHS% (MANUAL) 6 % (22-44); MONOS#(MANUAL) 0.25 x10^3/uL (0.3-2.7); MONOS% (MANUAL) 3 % (2-9); SEG#(MANUAL) 6.81 x10^3/uL (1.8-6.8); SEGS% (MANUAL) 82 % (42-75)
[2018-12-30 05:57] LABS: ANISOCYTOSIS 1+; HYPOCHROMIA 1+; MICROCYTOSIS 1+; POLYCHROMASIA 1+
[2018-12-30 05:58] LABS: <PLATELET ESTIMATE> ADEQUATE; <PLT MORPHOLOGY> NORMAL PLT MORPH
[2018-12-30] MEDS: CARVEDILOL 3.125 MG TABLET PO SCH ×2 (06:00→13:29)
[2018-12-30] MEDS: HEPARIN 5,000 UNITS/ML, 1ML SQ SCH ×3 (06:00→21:55)
[2018-12-30] MEDS: INSULIN LISPRO 100 UNITS/ML, PEN SQ-INSULIN SCH ×6 (06:00→22:49)
[2018-12-30] MEDS: ASPIRIN 81 MG TABLET EC PO SCH (06:04)
[2018-12-30] MEDS ORDERED: SODIUM CHLORIDE 0.9% IV PRN (09:00)
[2018-12-30] MEDS: SODIUM CHLORIDE FLUSH 10ML SYR IVF SCH ×3 (09:00→21:04)
[2018-12-30] MEDS ORDERED: PHENYLEPHRINE IV PRN (09:00)
[2018-12-30] MEDS: FUROSEMIDE 40 MG/4 ML IV SCH ×3 (10:02→22:07)
[2018-12-30] MEDS: PROPOFOL 100 ML IV PRN (10:03)
[2018-12-30] MEDS: CLOPIDOGREL 75 MG TABLET PO SCH (10:12)
[2018-12-30] MEDS: VASOPRESSIN 50 UNIT in SODIUM CHLORIDE 0.9% 247.5 ML IV PRN (10:18)
[2018-12-30] MEDS ORDERED: ETOMIDATE 20 MG/10 ML ONE (10:23)
[2018-12-30] MEDS ORDERED: SUCCINYLCHOLINE 20 MG/ML, 10ML ONE (10:23)
[2018-12-30] MEDS: DOBUTAMINE 250 MG in SODIUM CHLORIDE 0.9% 230 ML IV PRN (14:21)
[2018-12-30] MEDS: PIPERACILLIN/TAZO/PMX 3.375GM 50 ML IV SCH (18:22)
[2018-12-30 20:32] VITALS: BP 96/54
[2018-12-30 20:55] VITALS: BP 96/54
[2018-12-30] MEDS: ATORVASTATIN 40 MG TABLET PO SCH (21:04)
[2018-12-31] MEDS: DOBUTAMINE 250 MG in SODIUM CHLORIDE 0.9% 230 ML IV PRN ×3 (00:04→17:16)
[2018-12-31] MEDS: PROPOFOL 100 ML IV PRN ×4 (01:05→22:10)
[2018-12-31] MEDS: PIPERACILLIN/TAZO/PMX 3.375GM 50 ML IV SCH ×3 (01:38→17:24)
[2018-12-31] MEDS: EPINEPHRINE 4 MG in SODIUM CHLORIDE 0.9% 246 ML IV PRN ×3 (02:28→15:54)
[2018-12-31] MEDS: ALBUTEROL/IPRATROPIUM 2.5MG/0.5MG, 3 ML INLINE SCH ×5 (02:40→23:20)
[2018-12-31 04:45] LABS: MEAN CORPUSCULAR HEMOGLOBIN 25.9 pg (27.5-34.5); MEAN CORPUSCULAR VOLUME 78.5 fL (81-97); PLATELET COUNT 115 x10^3/uL (130-400); RED BLOOD COUNT 3.08 x10^6/uL (4.38-5.82); RED CELL DISTRIBUTION WIDTH 20.4 % (9.4-14.8)
[2018-12-31 04:52] LABS: ANION GAP 11 mmol/L (5-15); CALCIUM 7.5 mg/dL (8.5-10.1); CHLORIDE 113 mmol/L (98-107)
[2018-12-31] MEDS: INSULIN LISPRO 100 UNITS/ML, PEN SQ-INSULIN SCH ×4 (04:54→22:23)
[2018-12-31 04:55] LABS: ALANINE AMINOTRANSFERASE 35 U/L (12-78); ALKALINE PHOSPHATASE 123 U/L (45-117); BILIRUBIN,TOTAL 2.9 mg/dL (0.2-1.0); CREATININE 1.59 mg/dL (0.7-1.3); TOTAL PROTEIN 5.1 g/dL (6.4-8.2); TRIGLYCERIDES 98 mg/dL (50-200)
[2018-12-31 05:05] LABS: MD YES
[2018-12-31 05:08] LABS: ANISOCYTOSIS 1+; BAND#(MANUAL) 0.95 x10^3/uL; BANDS%(MANUAL) 15 % (0-7); LYMPH#(MANUAL) 0.95 x10^3/uL (1-3.4); LYMPHS% (MANUAL) 15 % (22-44); MICROCYTOSIS 1+; SEG#(MANUAL) 4.41 x10^3/uL (1.8-6.8); SEGS% (MANUAL) 70 % (42-75)
[2018-12-31 05:09] LABS: <PLATELET ESTIMATE> DECREASED; <PLT MORPHOLOGY> NORMAL PLT MORPH; HYPOCHROMIA 1+; OVALOCYTES 1+; POLYCHROMASIA 1+
[2018-12-31] MEDS: CARVEDILOL 3.125 MG TABLET PO SCH ×2 (06:00→12:52)
[2018-12-31] MEDS: ASPIRIN 81 MG TABLET EC PO SCH (06:15)
[2018-12-31] MEDS: HEPARIN 5,000 UNITS/ML, 1ML SQ SCH ×3 (06:15→21:16)
[2018-12-31] MEDS: VASOPRESSIN 50 UNIT in SODIUM CHLORIDE 0.9% 247.5 ML IV PRN (07:52)
[2018-12-31] MEDS ORDERED: FAMOTIDINE 20 MG/2 ML IV SCH (09:00)
[2018-12-31] MEDS ORDERED: POTASSIUM CHLORIDE PMX 100 ML IV ONE (09:00)
[2018-12-31] MEDS ORDERED: FUROSEMIDE 40 MG/4 ML IV SCH (09:00)
[2018-12-31] MEDS: CLOPIDOGREL 75 MG TABLET PO SCH (09:35)
[2018-12-31] MEDS ORDERED: CALCIUM GLUCONATE IV ONE (10:30)
[2018-12-31] MEDS ORDERED: CALCIUM CHLORIDE 13.6 MEQ in SODIUM CHLORIDE 0.9% 100 ML IV ONE (11:00)
[2018-12-31] MEDS: SODIUM CHLORIDE FLUSH 10ML SYR IVF SCH ×2 (12:48→20:38)
[2018-12-31] MEDS: FUROSEMIDE 40 MG/4 ML IV SCH ×2 (15:45→20:38)
[2018-12-31] MEDS ORDERED: POTASSIUM CHLORIDE 20 MEQ PACKET PO ONE (17:00)
[2018-12-31] MEDS ORDERED: PANTOPRAZOLE 40 MG IV ONE (17:49)
[2018-12-31] MEDS: ATORVASTATIN 40 MG TABLET PO SCH (20:38)
[2019-01-01] MEDS: EPINEPHRINE 4 MG in SODIUM CHLORIDE 0.9% 246 ML IV PRN ×3 (00:04→22:32)
[2019-01-01] MEDS: PIPERACILLIN/TAZO/PMX 3.375GM 50 ML IV SCH ×3 (01:36→16:41)
[2019-01-01] MEDS: ALBUTEROL/IPRATROPIUM 2.5MG/0.5MG, 3 ML INLINE SCH ×6 (03:00→23:00)
[2019-01-01] MEDS: PROPOFOL 100 ML IV PRN ×3 (03:25→17:29)
[2019-01-01] MEDS: DOBUTAMINE 250 MG in SODIUM CHLORIDE 0.9% 230 ML IV PRN ×2 (03:26→09:34)
[2019-01-01 04:05] LABS: ANION GAP 10 mmol/L (5-15); CALCIUM 7.8 mg/dL (8.5-10.1); CHLORIDE 111 mmol/L (98-107)
[2019-01-01 04:06] LABS: CREATININE 1.41 mg/dL (0.7-1.3)
[2019-01-01 04:08] LABS: BASOPHILS # (AUTO) 0.03 x10^3/uL (0-0.1); BASOPHILS % (AUTO) 0 % (0-1); EOSINOPHILS # (AUTO) 0.02 x10^3/uL (0-0.4); EOSINOPHILS % (AUTO) 0 % (1-7); LYMPHOCYTES # (AUTO) 0.61 x10^3/uL (1-3.4); LYMPHOCYTES % (AUTO) 7 % (22-44); MD NO; MEAN CORPUSCULAR HEMOGLOBIN 25.3 pg (27.5-34.5); MEAN CORPUSCULAR HGB CONC 32.4 g/dL (33.2-36.2); MEAN CORPUSCULAR VOLUME 78.2 fL (81-97); MEAN PLATELET VOLUME 8.1 fL (7.4-10.4); MONOCYTES # (AUTO) 0.37 x10^3/uL (0.2-0.8); MONOCYTES % (AUTO) 4 % (2-9); NEUTROPHILS # (AUTO) 7.29 x10^3/uL (1.8-6.8); NEUTROPHILS % (AUTO) 88 % (42-75); PLATELET COUNT 103 x10^3/uL (130-400); RED BLOOD COUNT 2.98 x10^6/uL (4.38-5.82); RED CELL DISTRIBUTION WIDTH 19.9 % (9.4-14.8)
[2019-01-01] MEDS: INSULIN LISPRO 100 UNITS/ML, PEN SQ-INSULIN SCH ×4 (05:14→22:16)
[2019-01-01] MEDS: HEPARIN 5,000 UNITS/ML, 1ML SQ SCH ×3 (05:16→22:03)
[2019-01-01] MEDS: ASPIRIN 81 MG TABLET CHEW PO SCH (05:16)
[2019-01-01] MEDS: PANTOPRAZOLE 40 MG IV IVPush SCH (05:16)
[2019-01-01] MEDS: CARVEDILOL 3.125 MG TABLET PO SCH (05:16)
[2019-01-01] MEDS ORDERED: CALCIUM CHLORIDE 13.6 MEQ in SODIUM CHLORIDE 0.9% 100 ML IV ONE (08:30)
[2019-01-01] MEDS: SODIUM CHLORIDE FLUSH 10ML SYR IVF SCH ×2 (09:19→20:15)
[2019-01-01] MEDS: FUROSEMIDE 40 MG/4 ML IV SCH ×3 (09:19→20:15)
[2019-01-01] MEDS: CLOPIDOGREL 75 MG TABLET PO SCH (09:19)
[2019-01-01] MEDS: SENNA/DOCUSATE TABLET NG PRN (09:19)
[2019-01-01] MEDS: POTASSIUM CHLORIDE 20 MEQ PACKET PO SCH ×3 (09:19→20:15)
[2019-01-01] MEDS: VASOPRESSIN 50 UNIT in SODIUM CHLORIDE 0.9% 247.5 ML IV PRN (09:33)
[2019-01-01] MEDS: DOBUTAMINE/D5W PMX 250 ML IV PRN ×2 (16:51→23:02)
[2019-01-01] MEDS: ATORVASTATIN 40 MG TABLET PO SCH (20:15)
[2019-01-02] MEDS: PIPERACILLIN/TAZO/PMX 3.375GM 50 ML IV SCH ×3 (01:16→17:20)
[2019-01-02] MEDS: PROPOFOL 100 ML IV PRN ×3 (01:18→14:07)
[2019-01-02] MEDS: ALBUTEROL/IPRATROPIUM 2.5MG/0.5MG, 3 ML INLINE SCH ×6 (02:20→22:33)
[2019-01-02] MEDS: DOBUTAMINE/D5W PMX 250 ML IV PRN ×3 (04:35→15:03)
[2019-01-02 04:54] LABS: BASOPHILS # (AUTO) 0.01 x10^3/uL (0-0.1); BASOPHILS % (AUTO) 0 % (0-1); EOSINOPHILS # (AUTO) 0.01 x10^3/uL (0-0.4); EOSINOPHILS % (AUTO) 0 % (1-7); LYMPHOCYTES # (AUTO) 0.63 x10^3/uL (1-3.4); LYMPHOCYTES % (AUTO) 6 % (22-44); MD NO; MEAN CORPUSCULAR HEMOGLOBIN 24.7 pg (27.5-34.5); MEAN CORPUSCULAR HGB CONC 31.6 g/dL (33.2-36.2); MEAN CORPUSCULAR VOLUME 77.9 fL (81-97); MEAN PLATELET VOLUME 8.7 fL (7.4-10.4); MONOCYTES # (AUTO) 0.61 x10^3/uL (0.2-0.8); MONOCYTES % (AUTO) 6 % (2-9); NEUTROPHILS # (AUTO) 8.62 x10^3/uL (1.8-6.8); NEUTROPHILS % (AUTO) 87 % (42-75); PLATELET COUNT 105 x10^3/uL (130-400); RED BLOOD COUNT 2.98 x10^6/uL (4.38-5.82); RED CELL DISTRIBUTION WIDTH 20.3 % (9.4-14.8)
[2019-01-02 05:05] LABS: ANION GAP 8 mmol/L (5-15); CHLORIDE 111 mmol/L (98-107); CREATININE 1.51 mg/dL (0.7-1.3); TRIGLYCERIDES 126 mg/dL (50-200)
[2019-01-02] MEDS: INSULIN LISPRO 100 UNITS/ML, PEN SQ-INSULIN SCH ×4 (05:08→21:42)
[2019-01-02] MEDS: HEPARIN 5,000 UNITS/ML, 1ML SQ SCH ×3 (05:27→21:24)
[2019-01-02] MEDS: ASPIRIN 81 MG TABLET CHEW PO SCH (05:27)
[2019-01-02] MEDS: PANTOPRAZOLE 40 MG IV IVPush SCH (05:27)
[2019-01-02] MEDS: EPINEPHRINE 4 MG in SODIUM CHLORIDE 0.9% 246 ML IV PRN ×2 (05:58→12:53)
[2019-01-02] MEDS: VASOPRESSIN 50 UNIT in SODIUM CHLORIDE 0.9% 247.5 ML IV PRN (08:54)
[2019-01-02] MEDS ORDERED: POTASSIUM CHLORIDE 10% 20 MEQ/15 ML UDC NG SCH (09:00)
[2019-01-02] MEDS: FUROSEMIDE 40 MG/4 ML IV SCH ×3 (09:00→21:23)
[2019-01-02] MEDS: CLOPIDOGREL 75 MG TABLET PO SCH (09:01)
[2019-01-02] MEDS: SODIUM CHLORIDE FLUSH 10ML SYR IVF SCH ×2 (09:01→21:00)
[2019-01-02] MEDS: NOREPINEPHRINE 16 MG in SODIUM CHLORIDE 0.9% 234 ML IV PRN (09:08)
[2019-01-02] MEDS ORDERED: CALCIUM CHLORIDE 13.6 MEQ in SODIUM CHLORIDE 0.9% 100 ML IV ONE (10:30)
[2019-01-02] MEDS: POTASSIUM CHLORIDE 20 MEQ PACKET PO SCH ×2 (11:13→17:20)
[2019-01-02] MEDS: MAGNESIUM OXIDE 400 MG TABLET PO SCH ×2 (11:13→21:23)
[2019-01-02] MEDS: ATORVASTATIN 40 MG TABLET PO SCH (21:23)
[2019-01-02] MEDS: SENNA/DOCUSATE TABLET NG PRN (21:23)
[2019-01-03] MEDS: PIPERACILLIN/TAZO/PMX 3.375GM 50 ML IV SCH (01:18)
[2019-01-03] MEDS: PROPOFOL 100 ML IV PRN ×2 (01:19→09:13)
[2019-01-03] MEDS: ALBUTEROL/IPRATROPIUM 2.5MG/0.5MG, 3 ML INLINE SCH ×6 (02:23→22:48)
[2019-01-03] MEDS: DOBUTAMINE/D5W PMX 250 ML IV PRN ×3 (02:34→15:31)
[2019-01-03] MEDS: FUROSEMIDE 40 MG/4 ML IV SCH ×4 (03:44→21:37)
[2019-01-03] MEDS: EPINEPHRINE 4 MG in SODIUM CHLORIDE 0.9% 246 ML IV PRN ×2 (03:45→10:30)
[2019-01-03] MEDS: VASOPRESSIN 50 UNIT in SODIUM CHLORIDE 0.9% 247.5 ML IV PRN (04:46)
[2019-01-03 05:05] LABS: BASOPHILS % (AUTO) 0 % (0-1); EOSINOPHILS # (AUTO) 0.29 x10^3/uL (0-0.4); EOSINOPHILS % (AUTO) 3 % (1-7); LYMPHOCYTES # (AUTO) 0.73 x10^3/uL (1-3.4); LYMPHOCYTES % (AUTO) 8 % (22-44); MD NO; MEAN CORPUSCULAR HEMOGLOBIN 25.2 pg (27.5-34.5); MEAN CORPUSCULAR VOLUME 78.7 fL (81-97); MEAN PLATELET VOLUME 8.6 fL (7.4-10.4); MONOCYTES # (AUTO) 0.46 x10^3/uL (0.2-0.8); MONOCYTES % (AUTO) 5 % (2-9); NEUTROPHILS # (AUTO) 8.06 x10^3/uL (1.8-6.8); NEUTROPHILS % (AUTO) 85 % (42-75); PLATELET COUNT 134 x10^3/uL (130-400); RED BLOOD COUNT 3.26 x10^6/uL (4.38-5.82); RED CELL DISTRIBUTION WIDTH 20.6 % (9.4-14.8)
[2019-01-03 05:16] LABS: ANION GAP 9 mmol/L (5-15); CALCIUM 8.3 mg/dL (8.5-10.1); CHLORIDE 108 mmol/L (98-107)
[2019-01-03 05:17] LABS: CREATININE 1.65 mg/dL (0.7-1.3); TRIGLYCERIDES 125 mg/dL (50-200)
[2019-01-03] MEDS: PANTOPRAZOLE 40 MG IV IVPush SCH (05:25)
[2019-01-03] MEDS: INSULIN LISPRO 100 UNITS/ML, PEN SQ-INSULIN SCH ×4 (05:26→22:07)
[2019-01-03] MEDS: HEPARIN 5,000 UNITS/ML, 1ML SQ SCH ×3 (05:26→21:37)
[2019-01-03] MEDS: ASPIRIN 81 MG TABLET CHEW PO SCH (05:26)
[2019-01-03] MEDS: SODIUM CHLORIDE FLUSH 10ML SYR IVF SCH ×2 (07:50→21:36)
[2019-01-03] MEDS: POTASSIUM CHLORIDE 20 MEQ PACKET PO SCH (07:50)
[2019-01-03] MEDS: CLOPIDOGREL 75 MG TABLET PO SCH (07:50)
[2019-01-03] MEDS: INSULIN GLARGINE 100 UNITS/ML, PEN SQ-INSULIN SCH ×2 (08:00→22:07)
[2019-01-03] MEDS: NOREPINEPHRINE 16 MG in SODIUM CHLORIDE 0.9% 234 ML IV PRN (08:18)
[2019-01-03] MEDS: CEFTRIAXONE PMX 2GM/50ML 50 ML IV SCH (09:13)
[2019-01-03] MEDS: ALBUMIN HUMAN 25% 100 ML IV SCH ×2 (12:44→20:18)
[2019-01-03] MEDS ORDERED: DOBUTAMINE/D5W PMX 250 ML IV PRN (20:00)
[2019-01-03] MEDS: ATORVASTATIN 40 MG TABLET PO SCH (21:36)
[2019-01-03] MEDS ORDERED: EPINEPHRINE 8 MG in SODIUM CHLORIDE 0.9% 242 ML IV PRN (23:00)
[2019-01-04] MEDS ORDERED: NOREPINEPHRINE 16 MG in SODIUM CHLORIDE 0.9% 234 ML IV PRN (02:26)
[2019-01-04] MEDS: ALBUTEROL/IPRATROPIUM 2.5MG/0.5MG, 3 ML INLINE SCH ×6 (02:32→22:00)
[2019-01-04] MEDS: ALBUMIN HUMAN 25% 100 ML IV SCH ×3 (03:41→20:31)
[2019-01-04] MEDS: FUROSEMIDE 40 MG/4 ML IV SCH ×2 (04:28→16:15)
[2019-01-04 04:42] LABS: MEAN CORPUSCULAR HGB CONC 32.1 g/dL (33.2-36.2); MEAN CORPUSCULAR VOLUME 77.8 fL (81-97); MEAN PLATELET VOLUME 9.3 fL (7.4-10.4); PLATELET COUNT 100 x10^3/uL (130-400); RED BLOOD COUNT 2.65 x10^6/uL (4.38-5.82); RED CELL DISTRIBUTION WIDTH 20.4 % (9.4-14.8)
[2019-01-04 04:47] LABS: ANION GAP 7 mmol/L (5-15); CALCIUM 8.1 mg/dL (8.5-10.1); CHLORIDE 110 mmol/L (98-107); CREATININE 1.75 mg/dL (0.7-1.3)
[2019-01-04] MEDS: INSULIN LISPRO 100 UNITS/ML, PEN SQ-INSULIN SCH ×4 (05:08→22:39)
[2019-01-04 05:20] LABS: BASOPHILS # (AUTO) 0.01 x10^3/uL (0-0.1); BASOPHILS % (AUTO) 0 % (0-1); EOSINOPHILS # (AUTO) 0.01 x10^3/uL (0-0.4); EOSINOPHILS % (AUTO) 0 % (1-7); LYMPHOCYTES # (AUTO) 0.73 x10^3/uL (1-3.4); LYMPHOCYTES % (AUTO) 10 % (22-44); MD SCAN; MONOCYTES # (AUTO) 0.45 x10^3/uL (0.2-0.8); MONOCYTES % (AUTO) 6 % (2-9); NEUTROPHILS # (AUTO) 6.22 x10^3/uL (1.8-6.8); NEUTROPHILS % (AUTO) 84 % (42-75)
[2019-01-04 05:38] LABS: MEAN CORPUSCULAR HEMOGLOBIN 25.4 pg (27.5-34.5); MEAN CORPUSCULAR HGB CONC 32.7 g/dL (33.2-36.2); MEAN CORPUSCULAR VOLUME 77.7 fL (81-97); MEAN PLATELET VOLUME 9.5 fL (7.4-10.4); PLATELET COUNT 98 x10^3/uL (130-400); RED BLOOD COUNT 2.58 x10^6/uL (4.38-5.82); RED CELL DISTRIBUTION WIDTH 20.5 % (9.4-14.8)
[2019-01-04 05:53] LABS: MD YES
[2019-01-04 05:56] LABS: BAND#(MANUAL) 0.22 x10^3/uL; BANDS%(MANUAL) 3 % (0-7); LYMPHS% (MANUAL) 7 % (22-44); MONOS#(MANUAL) 0.14 x10^3/uL (0.3-2.7); MONOS% (MANUAL) 2 % (2-9); NRBC % (MANUAL) 5 % (0-1); SEG#(MANUAL) 6.34 x10^3/uL (1.8-6.8); SEGS% (MANUAL) 88 % (42-75)
[2019-01-04 05:57] LABS: ANISOCYTOSIS 1+; MICROCYTOSIS 1+; POLYCHROMASIA 1+
[2019-01-04 05:58] LABS: <PLATELET ESTIMATE> DECREASED; <PLT MORPHOLOGY> NORMAL PLT MORPH; HYPOCHROMIA 1+
[2019-01-04] MEDS: HEPARIN 5,000 UNITS/ML, 1ML SQ SCH ×3 (06:00→22:45)
[2019-01-04] MEDS: PANTOPRAZOLE 40 MG IV IVPush SCH (06:19)
[2019-01-04] MEDS: CEFTRIAXONE PMX 2GM/50ML 50 ML IV SCH (07:55)
[2019-01-04] MEDS: CLOPIDOGREL 75 MG TABLET PO SCH (08:57)
[2019-01-04] MEDS: ASPIRIN 81 MG TABLET CHEW PO SCH (08:57)
[2019-01-04 09:00] VITALS: BP 85/50
[2019-01-04] MEDS ORDERED: PHENYLEPHRINE IV PRN (09:00)
[2019-01-04] MEDS ORDERED: SODIUM CHLORIDE 0.9% IV PRN (09:00)
[2019-01-04] MEDS: METOLAZONE 5 MG TABLET PO SCH ×2 (09:06→20:44)
[2019-01-04 09:15] VITALS: BP 80/46
[2019-01-04 10:15] VITALS: BP 79/44
[2019-01-04] MEDS ORDERED: VASOPRESSIN 50 UNIT in SODIUM CHLORIDE 0.9% 247.5 ML IV PRN (10:30)
[2019-01-04] MEDS: PROPOFOL 100 ML IV PRN (11:14)
[2019-01-04] MEDS: INSULIN GLARGINE 100 UNITS/ML, PEN SQ-INSULIN SCH ×2 (11:22→22:39)
[2019-01-04] MEDS: SODIUM CHLORIDE FLUSH 10ML SYR IVF SCH ×2 (11:23→20:52)
[2019-01-04 11:45] VITALS: BP 85/51
[2019-01-04] MEDS ORDERED: DOBUTAMINE/D5W PMX 250 ML IV PRN (16:30)
[2019-01-04] MEDS: ATORVASTATIN 40 MG TABLET PO SCH (20:43)
[2019-01-05] MEDS: ALBUTEROL/IPRATROPIUM 2.5MG/0.5MG, 3 ML INLINE SCH ×6 (02:00→22:00)
[2019-01-05] MEDS: DEXMEDETOMIDINE 200 MCG in SODIUM CHLORIDE 0.9% 48 ML IV PRN ×2 (02:14→15:17)
[2019-01-05] MEDS: ALBUMIN HUMAN 25% 100 ML IV SCH ×3 (03:07→20:17)
[2019-01-05] MEDS: FUROSEMIDE 40 MG/4 ML IV SCH (04:23)
[2019-01-05] MEDS: INSULIN LISPRO 100 UNITS/ML, PEN SQ-INSULIN SCH ×4 (04:34→22:08)
[2019-01-05 04:45] LABS: MEAN CORPUSCULAR HEMOGLOBIN 24.5 pg (27.5-34.5); MEAN CORPUSCULAR HGB CONC 30.8 g/dL (33.2-36.2); MEAN CORPUSCULAR VOLUME 79.5 fL (81-97); MEAN PLATELET VOLUME 9.6 fL (7.4-10.4); PLATELET COUNT 93 x10^3/uL (130-400); RED BLOOD COUNT 2.85 x10^6/uL (4.38-5.82); RED CELL DISTRIBUTION WIDTH 20.7 % (9.4-14.8)
[2019-01-05 04:56] LABS: ANION GAP 9 mmol/L (5-15); CALCIUM 8.4 mg/dL (8.5-10.1); CHLORIDE 108 mmol/L (98-107); CREATININE 1.84 mg/dL (0.7-1.3); TRIGLYCERIDES 79 mg/dL (50-200)
[2019-01-05 05:09] LABS: BASOPHILS # (AUTO) 0.01 x10^3/uL (0-0.1); BASOPHILS % (AUTO) 0 % (0-1); EOSINOPHILS % (AUTO) 1 % (1-7); LYMPHOCYTES # (AUTO) 0.54 x10^3/uL (1-3.4); LYMPHOCYTES % (AUTO) 8 % (22-44); MD SCAN; MONOCYTES # (AUTO) 0.29 x10^3/uL (0.2-0.8); MONOCYTES % (AUTO) 4 % (2-9); NEUTROPHILS # (AUTO) 6.22 x10^3/uL (1.8-6.8); NEUTROPHILS % (AUTO) 87 % (42-75)
[2019-01-05] MEDS ORDERED: POTASSIUM CHLORIDE 40 MEQ in SODIUM CHLORIDE 0.9% 100 ML IV ONE (05:30)
[2019-01-05] MEDS: PANTOPRAZOLE 40 MG IV IVPush SCH (05:49)
[2019-01-05] MEDS: ASPIRIN 81 MG TABLET CHEW PO SCH (05:49)
[2019-01-05] MEDS: HEPARIN 5,000 UNITS/ML, 1ML SQ SCH ×3 (05:49→22:07)
[2019-01-05 06:23] VITALS: BP 83/47
[2019-01-05 06:31] VITALS: BP 81/46
[2019-01-05] MEDS: METOLAZONE 5 MG TABLET PO SCH ×2 (08:21→20:33)
[2019-01-05] MEDS: SODIUM CHLORIDE FLUSH 10ML SYR IVF SCH ×2 (08:31→20:32)
[2019-01-05] MEDS: CLOPIDOGREL 75 MG TABLET PO SCH (08:31)
[2019-01-05 08:36] VITALS: BP 79/44
[2019-01-05] MEDS: INSULIN GLARGINE 100 UNITS/ML, PEN SQ-INSULIN SCH ×2 (08:41→22:08)
[2019-01-05] MEDS ORDERED: POTASSIUM CHLORIDE 10% 40 MEQ/30 ML UDC PO SCH (09:00)
[2019-01-05] MEDS ORDERED: FUROSEMIDE 100 MG in SODIUM CHLORIDE 0.9% 90 ML IV SCH (09:00)
[2019-01-05] MEDS: POTASSIUM CHLORIDE 10% 40 MEQ/30 ML UDC PO SCH ×3 (09:00→20:33)
[2019-01-05] MEDS: CEFTRIAXONE PMX 2GM/50ML 50 ML IV SCH (09:19)
[2019-01-05 09:22] VITALS: BP 73/43
--- NOTE | 2019-01-05 09:56 | NUR ---
TF GOAL: w/ propofol: VITAL AF 1.2 @ 65ML/HR off propofol: VITAL AF 1.2 @ 70ML/HR
[2019-01-05 10:10] VITALS: BP 75/48
[2019-01-05] MEDS: ATORVASTATIN 40 MG TABLET PO SCH (20:33)
[2019-01-06] MEDS: FUROSEMIDE 100 MG in SODIUM CHLORIDE 0.9% 90 ML IV SCH ×2 (01:48→12:15)
[2019-01-06] MEDS: ALBUTEROL/IPRATROPIUM 2.5MG/0.5MG, 3 ML INLINE SCH ×3 (02:00→10:50)
[2019-01-06] MEDS: ALBUMIN HUMAN 25% 100 ML IV SCH ×3 (03:55→20:55)
[2019-01-06] MEDS: INSULIN LISPRO 100 UNITS/ML, PEN SQ-INSULIN SCH ×4 (04:43→21:09)
[2019-01-06] MEDS ORDERED: FUROSEMIDE 100 MG in SODIUM CHLORIDE 0.9% 90 ML IV SCH (05:00)
[2019-01-06 05:04] LABS: ANION GAP 10 mmol/L (5-15); CALCIUM 8.7 mg/dL (8.5-10.1); CHLORIDE 109 mmol/L (98-107); CREATININE 2.31 mg/dL (0.7-1.3); TRIGLYCERIDES 62 mg/dL (50-200)
[2019-01-06 05:05] LABS: BASOPHILS % (AUTO) 0 % (0-1); EOSINOPHILS # (AUTO) 0.01 x10^3/uL (0-0.4); EOSINOPHILS % (AUTO) 0 % (1-7); LYMPHOCYTES # (AUTO) 0.66 x10^3/uL (1-3.4); LYMPHOCYTES % (AUTO) 7 % (22-44); MD NO; MEAN CORPUSCULAR HEMOGLOBIN 26.6 pg (27.5-34.5); MEAN CORPUSCULAR HGB CONC 32.9 g/dL (33.2-36.2); MEAN CORPUSCULAR VOLUME 80.7 fL (81-97); MEAN PLATELET VOLUME 10.6 fL (7.4-10.4); MONOCYTES % (AUTO) 5 % (2-9); NEUTROPHILS % (AUTO) 88 % (42-75); PLATELET COUNT 124 x10^3/uL (130-400); RED BLOOD COUNT 3.39 x10^6/uL (4.38-5.82); RED CELL DISTRIBUTION WIDTH 20.6 % (9.4-14.8)
[2019-01-06] MEDS: ASPIRIN 81 MG TABLET CHEW PO SCH (06:03)
[2019-01-06] MEDS: PANTOPRAZOLE 40 MG IV IVPush SCH (06:03)
[2019-01-06] MEDS: HEPARIN 5,000 UNITS/ML, 1ML SQ SCH ×3 (06:04→21:16)
[2019-01-06] MEDS: POTASSIUM CHLORIDE 10% 40 MEQ/30 ML UDC PO SCH ×3 (09:00→20:58)
[2019-01-06] MEDS: METOLAZONE 5 MG TABLET PO SCH ×2 (09:00→20:58)
[2019-01-06] MEDS: CLOPIDOGREL 75 MG TABLET PO SCH (09:00)
[2019-01-06] MEDS: SODIUM CHLORIDE FLUSH 10ML SYR IVF SCH ×2 (09:00→20:57)
[2019-01-06] MEDS: CEFTRIAXONE PMX 2GM/50ML 50 ML IV SCH (09:00)
[2019-01-06] MEDS: INSULIN GLARGINE 100 UNITS/ML, PEN SQ-INSULIN SCH ×2 (09:01→21:08)
[2019-01-06] MEDS: ATORVASTATIN 40 MG TABLET PO SCH (20:58)
[2019-01-07] MEDS: FUROSEMIDE 100 MG in SODIUM CHLORIDE 0.9% 90 ML IV SCH (03:48)
[2019-01-07] MEDS: INSULIN LISPRO 100 UNITS/ML, PEN SQ-INSULIN SCH ×4 (04:19→21:17)
[2019-01-07 04:42] LABS: ANION GAP 11 mmol/L (5-15); CALCIUM 8.7 mg/dL (8.5-10.1); CHLORIDE 109 mmol/L (98-107); CREATININE 2.65 mg/dL (0.7-1.3)
[2019-01-07 06:07] LABS: MD YES; MEAN CORPUSCULAR HEMOGLOBIN 26.5 pg (27.5-34.5); MEAN CORPUSCULAR HGB CONC 32.8 g/dL (33.2-36.2); MEAN CORPUSCULAR VOLUME 80.9 fL (81-97); MEAN PLATELET VOLUME 10.5 fL (7.4-10.4); PLATELET COUNT 104 x10^3/uL (130-400); RED BLOOD COUNT 3.58 x10^6/uL (4.38-5.82); RED CELL DISTRIBUTION WIDTH 21.3 % (9.4-14.8)
[2019-01-07 06:09] LABS: ANISOCYTOSIS 1+; HYPOCHROMIA 1+; LYMPH#(MANUAL) 0.99 x10^3/uL (1-3.4); LYMPHS% (MANUAL) 10 % (22-44); MICROCYTOSIS 1+; MONOS% (MANUAL) 3 % (2-9); NRBC % (MANUAL) 2 % (0-1); POLYCHROMASIA 1+; SEG#(MANUAL) 8.61 x10^3/uL (1.8-6.8); SEGS% (MANUAL) 87 % (42-75)
[2019-01-07 06:10] LABS: OVALOCYTES 1+
[2019-01-07 06:11] LABS: <PLATELET ESTIMATE> DECREASED; LARGE PLATELETS 1+
[2019-01-07] MEDS: ALBUMIN HUMAN 25% 100 ML IV SCH ×3 (06:25→20:58)
[2019-01-07] MEDS: PANTOPRAZOLE 40 MG IV IVPush SCH (06:25)
[2019-01-07] MEDS: HEPARIN 5,000 UNITS/ML, 1ML SQ SCH ×3 (06:31→22:50)
[2019-01-07] MEDS: ASPIRIN 81 MG TABLET CHEW PO SCH (06:31)
[2019-01-07] MEDS: POTASSIUM CHLORIDE 10% 40 MEQ/30 ML UDC PO SCH ×3 (08:11→20:58)
[2019-01-07] MEDS: CEFTRIAXONE PMX 2GM/50ML 50 ML IV SCH (08:11)
[2019-01-07] MEDS: CLOPIDOGREL 75 MG TABLET PO SCH (08:11)
[2019-01-07] MEDS: INSULIN GLARGINE 100 UNITS/ML, PEN SQ-INSULIN SCH ×2 (08:12→21:16)
[2019-01-07] MEDS: SODIUM CHLORIDE FLUSH 10ML SYR IVF SCH ×2 (08:12→21:03)
[2019-01-07] MEDS: METOLAZONE 5 MG TABLET PO SCH ×2 (08:12→20:58)
[2019-01-07] MEDS: ATORVASTATIN 40 MG TABLET PO SCH (20:58)
[2019-01-08 04:44] LABS: MEAN CORPUSCULAR HEMOGLOBIN 26.1 pg (27.5-34.5); MEAN CORPUSCULAR HGB CONC 32.4 g/dL (33.2-36.2); MEAN CORPUSCULAR VOLUME 80.5 fL (81-97); RED BLOOD COUNT 3.69 x10^6/uL (4.38-5.82); RED CELL DISTRIBUTION WIDTH 22.1 % (9.4-14.8)
[2019-01-08 04:52] LABS: ANION GAP 12 mmol/L (5-15); CHLORIDE 112 mmol/L (98-107)
[2019-01-08] MEDS: INSULIN LISPRO 100 UNITS/ML, PEN SQ-INSULIN SCH (04:53)
[2019-01-08 04:54] LABS: CREATININE 2.94 mg/dL (0.7-1.3); TRIGLYCERIDES 33 mg/dL (50-200)
[2019-01-08 05:09] LABS: BASOPHILS % (AUTO) 0 % (0-1); EOSINOPHILS # (AUTO) 0.43 x10^3/uL (0-0.4); EOSINOPHILS % (AUTO) 3 % (1-7); LYMPHOCYTES # (AUTO) 0.97 x10^3/uL (1-3.4); LYMPHOCYTES % (AUTO) 7 % (22-44); MD SCAN; MEAN PLATELET VOLUME 10.6 fL (7.4-10.4); MONOCYTES # (AUTO) 0.88 x10^3/uL (0.2-0.8); MONOCYTES % (AUTO) 6 % (2-9); NEUTROPHILS # (AUTO) 11.77 x10^3/uL (1.8-6.8); NEUTROPHILS % (AUTO) 84 % (42-75); PLATELET COUNT 177 x10^3/uL (130-400)
[2019-01-08] MEDS: ALBUMIN HUMAN 25% 100 ML IV SCH (05:43)
[2019-01-08] MEDS: PANTOPRAZOLE 40 MG IV IVPush SCH (05:45)
[2019-01-08] MEDS: CLOPIDOGREL 75 MG TABLET PO SCH (08:15)
[2019-01-08] MEDS: METOLAZONE 5 MG TABLET PO SCH (08:15)
[2019-01-08] MEDS: POTASSIUM CHLORIDE 10% 40 MEQ/30 ML UDC PO SCH (08:15)
[2019-01-08] MEDS: HEPARIN 5,000 UNITS/ML, 1ML SQ SCH (08:15)
[2019-01-08] MEDS: ASPIRIN 81 MG TABLET CHEW PO SCH (08:16)
[2019-01-08] MEDS: SODIUM CHLORIDE FLUSH 10ML SYR IVF SCH (08:16)
[2019-01-08] MEDS: CEFTRIAXONE PMX 2GM/50ML 50 ML IV SCH (08:18)
[2019-01-08] MEDS ORDERED: MORPHINE 30MG/30ML PCA.SYR IV PRN (11:00)
[2019-01-08] MEDS ORDERED: ATROPINE OPHTH SOLN 1%, 2ML PO PRN (12:00)
[2019-01-08] MEDS ORDERED: LORazepam 2 MG/ML, 1ML IV PRN (12:00)
[2019-01-08] MEDS ORDERED: LORazepam 2 MG/ML, 1ML IV ONE (12:00)
== END 2019-01-08 18:14 | disposition expired | DRG 266 ==
LOC: ED 17:00 → EDIP 17:08 → SUATTDRO 17:15 → ED 17:59 → 5SO 20:14 → CCU 12-28 11:55 → 3NW 01-08 11:45 → UNDODISIN 01-09 00:40
PROVIDERS: ADMIT Hospitalist; ATTEND Internal Medicine
PROC: 03HY32Z Insertion of Monitoring Device into Upper Artery, Percutaneous Approach (ICD-10-PCS; 2018-12-28)
PROC: 02RF38Z Replacement of Aortic Valve with Zooplastic Tissue, Percutaneous Approach (ICD-10-PCS; principal; 2018-12-28 14:00)
PROC: 30233N1 Transfusion of Nonautologous Red Blood Cells into Peripheral Vein, Percutaneous Approach (ICD-10-PCS; 2018-12-30)
PROC: 02HV33Z Insertion of Infusion Device into Superior Vena Cava, Percutaneous Approach (ICD-10-PCS; 2018-12-30)
PROC: B5181ZA Fluoroscopy of Superior Vena Cava using Low Osmolar Contrast, Guidance (ICD-10-PCS; 2018-12-30)
PROC: B548ZZA Ultrasonography of Superior Vena Cava, Guidance (ICD-10-PCS; 2018-12-30)
PROC: 5A1955Z Respiratory Ventilation, Greater than 96 Consecutive Hours (ICD-10-PCS; 2018-12-31)
PROC: 0BH17EZ Insertion of Endotracheal Airway into Trachea, Via Natural or Artificial Opening (ICD-10-PCS; 2018-12-31)
PROC: 5A12012 Performance of Cardiac Output, Single, Manual (ICD-10-PCS; 2019-01-05)
DX: I35.0 Nonrheumatic aortic (valve) stenosis (principal); Z00.6 Encounter for examination for normal comparison and control in clinical research program; I50.43 Acute on chronic combined systolic (congestive) and diastolic (congestive) heart failure; K66.1 Hemoperitoneum; G93.41 Metabolic encephalopathy; J15.4 Pneumonia due to other streptococci; J96.01 Acute respiratory failure with hypoxia; J96.02 Acute respiratory failure with hypercapnia; N17.0 Acute kidney failure with tubular necrosis; A41.9 Sepsis, unspecified organism; R65.21 Severe sepsis with septic shock; I42.9 Cardiomyopathy, unspecified; N17.9 Acute kidney failure, unspecified; E44.0 Moderate protein-calorie malnutrition; E87.1 Hypo-osmolality and hyponatremia; I13.0 Hypertensive heart and chronic kidney disease with heart failure and stage 1 through stage 4 chronic kidney disease, or unspecified chronic kidney disease; Z99.11 Dependence on respirator [ventilator] status; Z88.2 Allergy status to sulfonamides; Z88.8 Allergy status to other drugs, medicaments and biological substances; B96.89 Other specified bacterial agents as the cause of diseases classified elsewhere; D50.9 Iron deficiency anemia, unspecified; E11.22 Type 2 diabetes mellitus with diabetic chronic kidney disease; E11.65 Type 2 diabetes mellitus with hyperglycemia; E11.69 Type 2 diabetes mellitus with other specified complication; E87.6 Hypokalemia; E78.5 Hyperlipidemia, unspecified; I25.10 Atherosclerotic heart disease of native coronary artery without angina pectoris; I25.2 Old myocardial infarction; I25.5 Ischemic cardiomyopathy; L89.159 Pressure ulcer of sacral region, unspecified stage; N18.9 Chronic kidney disease, unspecified; R57.0 Cardiogenic shock; W18.39XA Other fall on same level, initial encounter; Y93.89 Activity, other specified; Y92.89 Other specified places as the place of occurrence of the external cause; Y99.8 Other external cause status; Z51.5 Encounter for palliative care; Z66 Do not resuscitate; Z80.3 Family history of malignant neoplasm of breast; Z82.0 Family history of epilepsy and other diseases of the nervous system; Z83.3 Family history of diabetes mellitus; Z87.891 Personal history of nicotine dependence; Z91.19 Patient's noncompliance with other medical treatment and regimen; Z95.5 Presence of coronary angioplasty implant and graft; S70.01XA Contusion of right hip, initial encounter; T50.2X5A Adverse effect of carbonic-anhydrase inhibitors, benzothiadiazides and other diuretics, initial encounter; Z79.82 Long term (current) use of aspirin; Z79.899 Other long term (current) drug therapy
CPT/HCPCS: 33361; 36415; 36573; 36600; 71045; 74018; 80048; 80053; 81001; 82040; 82330; 82533; 82550; 82803; 82947; 82962; 83036; 83605; 83735; 83880; 84100; 84132; 84478; 84484; 85025; 85347; 85610; 85730; 86850; 86900; 86923; 87040; 87070; 87077; 87081; 87086; 87184; 87186; 87205; 93005; 93306; 93312; 93321; 93325; 93355; 93970; 93978; 94002; 94003; 94150; 94640; 99285; C1760; C1769; C1894; G0378; J0171; J0690; J0696; J1644; J1940; J2250; J2270; J2543; J2704; J3010; J3480; J7620; P9047; C1751; C9113; J0330; J1250; J1815; J2060; J2370; J3490; J7040; J7050; P9016; Q9967